=== PATIENT | female | born 1940 ===

== ENCOUNTER → 2019-04-19 | Outpatient (CLI) | payer MEDICARE | END | disposition home or self-care (01) | LOC: PLD 08:27 → LAB SHORT 08:27 | DX: C44.319 Basal cell carcinoma of skin of other parts of face (principal) | CPT/HCPCS: 88305 ==

== ENCOUNTER → 2019-05-11 | Outpatient (CLI) | payer MEDICARE | END | disposition home or self-care (01) | LOC: LAB SHORT 08:14 → PLD 08:14 | DX: C44.310 Basal cell carcinoma of skin of unspecified parts of face (principal) | CPT/HCPCS: 88305 ==

== ENCOUNTER → 2019-12-29 | Outpatient (CLI) | payer MEDICARE | LOC: LAB EV 10:40 → LAB SHORT 10:40 | DX: R19.4 Change in bowel habit (principal) | CPT/HCPCS: 87177; 87209 ==

== ENCOUNTER → 2020-01-17 | Outpatient (CLI) | payer MEDICARE ==
[2020-01-19 10:52] LABS: Adenovirus F 40/41 Not Detected (NOT DETECT); Astrovirus Not Detected (NOT DETECT); Campylobacter Sp Not Detected (NOT DETECT); Cryptosporidium Not Detected (NOT DETECT); Cyclospora Cayetanensis Not Detected (NOT DETECT); E. Coli O157 Not Detected (NOT DETECT); Entamoeba Histolytica Not Detected (NOT DETECT); Enteroaggregative E. coli-EAEC Not Detected (NOT DETECT); Enteropathogenic E. coli-EPEC Not Detected (NOT DETECT); Enterotoxigenic E. coli-ETEC Not Detected (NOT DETECT); Giardia Lamblia Not Detected (NOT DETECT); Norovirus GI/GII Not Detected (NOT DETECT); Plesiomonas Shigelloides Not Detected (NOT DETECT); Rotavirus A Not Detected (NOT DETECT); Salmonella Sp Not Detected (NOT DETECT); Sapovirus Not Detected (NOT DETECT); Shiga Toxin-prod E. coli-STEC Not Detected (NOT DETECT); Shigella/Enteroin E. coli-EIEC Not Detected (NOT DETECT); Vibrio Cholerae Not Detected (NOT DETECT); Vibrio Sp Not Detected (NOT DETECT); Yersinia Enterocolitica Not Detected (NOT DETECT)
== END ==
LOC: LAB EV 11:50 → LAB SHORT 11:50
PROVIDERS: Nurse Practitioner Family
DX: R19.4 Change in bowel habit (principal); R19.7 Diarrhea, unspecified
CPT/HCPCS: 0097U

== ENCOUNTER 2021-01-09 10:16 | Day surgery (SDC) | payer MEDICARE | END 2021-01-09 23:17 | disposition home or self-care (01) | LOC: MOI MAM 10:16 | DX: C50.911 Malignant neoplasm of unspecified site of right female breast (principal); R92.8 Other abnormal and inconclusive findings on diagnostic imaging of breast | CPT/HCPCS: 19081; 88305; 88342; 88360; A4648 ==

== ENCOUNTER → 2021-04-23 | Outpatient (CLI) | payer MEDICARE | END | disposition home or self-care (01) | LOC: LAB SHORT 14:15 | DX: N95.8 Other specified menopausal and perimenopausal disorders (principal); L71.9 Rosacea, unspecified; M54.2 Cervicalgia; D48.5 Neoplasm of uncertain behavior of skin; M26.602 Left temporomandibular joint disorder, unspecified; M81.0 Age-related osteoporosis without current pathological fracture; G90.09 Other idiopathic peripheral autonomic neuropathy; R10.30 Lower abdominal pain, unspecified | CPT/HCPCS: 87338 ==